=== PATIENT | female | born 1995 | race Caucasian/White ===

== ENCOUNTER → 2022-03-29 | Outpatient (CLI) | payer OTHER | LOC: MHCPAIN 10:45 | DX: R20.0 Anesthesia of skin (principal); M25.511 Pain in right shoulder; G54.0 Brachial plexus disorders | CPT/HCPCS: G0463 ==

== ENCOUNTER → 2022-04-20 | Outpatient (CLI) | payer OTHER | LOC: MHCPAIN 10:49 | DX: M25.511 Pain in right shoulder (principal); G54.0 Brachial plexus disorders | CPT/HCPCS: J3301 ==